=== PATIENT | female | born 2000 | race Caucasian/White ===

== ENCOUNTER 2023-10-04 05:38 | Emergency (ER) | payer BC ==
[2023-10-04] MEDS ORDERED: Sodium Chloride 0.9% 10 ML Syringe FLUSH PRN (06:06)
[2023-10-04 06:15] LABS: BASOPHILS ABSOLUTE AUTO 0.02 K/uL (0.00-0.20); BASOPHILS PERCENT AUTO 0.2 % (0.0-2.0); EOSINOPHILS ABSOLUTE AUTO 0.54 K/uL (0.00-0.50); EOSINOPHILS PERCENT AUTO 4.1 % (0.0-5.0); HEMATOCRIT 41.4 % (34.0-46.0); HEMOGLOBIN 13.5 g/dL (11.7-15.5); LYMPHOCYTES ABSOLUTE AUTO 4.03 K/uL (0.50-3.50); LYMPHOCYTES PERCENT AUTO 30.9 % (10.0-50.0); MEAN CORPUSCULAR HEMOGLOBIN 27.1 pg (28.2-33.3); MEAN CORPUSCULAR HGB CONC 32.6 g/dL (31.7-36.0); MONOCYTES ABSOLUTE AUTO 0.94 K/uL (0.00-1.00); MONOCYTES PERCENT AUTO 7.2 % (2.0-14.0); NEUTROPHILS ABSOLUTE AUTO 7.51 K/uL (1.40-7.00); NEUTROPHILS PERCENT AUTO 57.6 % (45.0-80.0); PLATELET COUNT,PLT 358 K/uL (150-350); RED BLOOD CELL COUNT 4.99 M/uL (3.77-5.09); RED CELL DISTRIBUTION WIDTH 13.6 % (11.2-14.1)
[2023-10-04 06:27] LABS: ANION GAP 10.7 meq/L (7-15); BLOOD UREA NITROGEN,BUN 14 mg/dL (7-18); CALCIUM 8.7 mg/dL (8.5-10.1); CARBON DIOXIDE,CO2 26.3 mmol/L (21.0-32.0); CHLORIDE,CL 102 mmol/L (98-107); CREATININE 0.91 mg/dL (0.51-1.17); GLUCOSE RANDOM 105 mg/dL (70-99); POTASSIUM,K 3.6 mmol/L (3.5-5.1); SODIUM,NA 139 mmol/L (136-145)
[2023-10-04 06:29] LABS: ESTIMATED GFR 90 mL/min (>=60)
[2023-10-04 07:00] LABS: APPEARANCE,URINE SLIGHTLY CLOUDY; BILIRUBIN,URINE NEGATIVE (NEGATIVE); COLOR,URINE YELLOW; GLUCOSE,URINE NEGATIVE (NEGATIVE); KETONES,URINE NEGATIVE (NEGATIVE); LEUKOCYTE ESTERASE,URINE NEGATIVE (NEGATIVE); NITRITE,URINE NEGATIVE (NEGATIVE); OCCULT BLOOD,URINE TRACE-INTACT (NEGATIVE); PH,URINE 6.5 (5.0-9.0); PROTEIN,URINE NEGATIVE (NEGATIVE); UROBILINOGEN,URINE 0.2 E.U./dL (0.2-1.0)
[2023-10-04 07:07] LABS: BACTERIA,URINE MODERATE /HPF (NONE TO FEW); EPITHELIAL CELLS,URINE MODERATE /LPF; RBC,URINE 0-5 /HPF; WBC,URINE 0-5 /HPF
[2023-10-04] MEDS: Iopamidol 612 MG/ML 100 ML Bottle IVPUSH STA (07:40)
== END 2023-10-04 08:09 | disposition home or self-care (01) ==
LOC: LL.ED 05:38
DX: K52.9 Noninfective gastroenteritis and colitis, unspecified (principal); Z79.899 Other long term (current) drug therapy
CPT/HCPCS: 36415; 74177; 80048; 81001; 84703; 85025; 99284; Q9967